=== PATIENT | female | born 1975 | race Caucasian/White ===

== ENCOUNTER 2021-06-22 13:12 | Emergency (ER) | payer SELFPAY ==
[~2021-06-22] VITALS: Ht 167.6 cm; Wt 56.0 kg
[2021-06-22 13:27] VITALS: TEMP 98
[2021-06-22] MEDS ORDERED: CYMBALTA 30MG30 MG PO (13:33)
[2021-06-22 16:08] VITALS: BP 101/67; PULSE 79
== END 2021-06-22 15:49 | disposition home or self-care (01) ==
LOC: COL.ER 13:12
DX: G43.909 Migraine, unspecified, not intractable, without status migrainosus (principal); F17.210 Nicotine dependence, cigarettes, uncomplicated
CPT/HCPCS: J1885; J2550

== ENCOUNTER → 2021-07-28 | Outpatient (CLI) | payer SELFPAY ==
[~2021-07-28] MED LIST: CYMBALTA 30MG30 MG PO
== END ==
LOC: COL.RAD 11:50
DX: E04.9 Nontoxic goiter, unspecified (principal)